=== PATIENT | male | born 1970 | race Caucasian/White ===

== ENCOUNTER 2018-06-09 22:37 | Emergency (ER) | payer BC, OTHER ==
[~2018-06-09] VITALS: Ht 167.6 cm; Wt 77.4 kg
[~2018-06-09 22:37] MED LIST: FOLI1TAB16 PO; MULT1TAB74 PO; SIMV10TA6 PO; VALS40TA2 PO
--- NOTE | 2018-06-09 23:02 | NUR ---
BACK FROM XRAY
[2018-06-10 00:09] LABS: HEMATOCRIT 29.3 % (42.0-52.0); HEMOGLOBIN 9.7 g/dl (14.0-17.9); MEAN CORPUSCULAR HEMOGLOBIN 30.2 PG (27.0-31.0); MEAN CORPUSCULAR HGB CONC 33.2 % (33.0-36.5); MEAN CORPUSCULAR VOLUME 90.9 FL (78-98); MEAN PLATELET VOLUME 8.4 FL (7.4-10.4); PLATELET COUNT 100 X10'3 (140-440); RED BLOOD COUNT 3.22 X10'6 (4.70-6.10); RED CELL DISTRIBUTION WIDTH 18.5 % (11.5-14.5); WHITE BLOOD COUNT 8.1 X10'3 (4.5-11.0)
[2018-06-10 00:15] LABS: ALANINE AMINOTRANSFERASE 48 U/L (12-78); ALBUMIN 3.3 G/DL (3.4-5.0); ALKALINE PHOSPHATASE 179 IU/L (46-116); ANION GAP 13 (8-16); ASPARTATE AMINO TRANSFERASE 120 U/L (10-37); BILIRUBIN,TOTAL 3.9 MG/DL (0.1-1.0); BLOOD UREA NITROGEN 5 MG/DL (7-18); BUN/CREATININE RATIO 7.7 (5.4-32.0); C-REACTIVE PROTEIN 0.49 MG/DL (0.0-0.5); CALCIUM 8.2 MG/DL (8.5-10.1); CHLORIDE 103 MMOL/L (99-107); CREATININE 0.65 MG/DL (0.60-1.10); GLUCOSE 98 MG/DL (70-104); POTASSIUM 3.1 MMOL/L (3.5-5.1); SODIUM 142 MMOL/L (135-145); TOTAL CARBON DIOXIDE 25.8 MMOL/L (24-32); eGFR > 90 ML/MIN
[2018-06-10 00:19] LABS: ALBUMIN/GLOBULIN RATIO 0.7 (1.1-1.5); TOTAL PROTEIN 7.9 G/DL (6.4-8.2)
[2018-06-10 00:21] LABS: INR 1.6 INR; PARTIAL THROMBOPLASTIN TIME 33 SECONDS (22-32); PROTHROMBIN TIME 16.1 SECONDS (9.0-12.0)
[2018-06-10 00:29] LABS: ANISOCYTOSIS 2+; PLATELET ESTIMATE DECREASED; TOTAL CELLS COUNTED 100
[2018-06-10 00:30] LABS: ELLIPTOCYTES 1+; TARGET CELLS 1+
[2018-06-10 00:39] VITALS: BP 117/74
== END 2018-06-10 01:29 | disposition home or self-care (01) ==
LOC: ER 22:38
DX: S20.211A Contusion of right front wall of thorax, initial encounter (principal); S60.222A Contusion of left hand, initial encounter; S60.221A Contusion of right hand, initial encounter; D68.9 Coagulation defect, unspecified; I10 Essential (primary) hypertension; W11.XXXA Fall on and from ladder, initial encounter; Y93.89 Activity, other specified; Y92.89 Other specified places as the place of occurrence of the external cause; Y99.8 Other external cause status
CPT/HCPCS: 36415; 71046; 80053; 85025; 85384; 85610; 85651; 85730; 86140; 93005; 99284

== ENCOUNTER 2018-10-16 18:20 | Emergency (ER) | payer OTHER ==
[~2018-10-16] VITALS: Ht 167.6 cm; Wt 80.0 kg
[2018-10-16 18:36] VITALS: BP 122/77
[2018-10-16] MEDS ORDERED: orphenadrine citrate 60mg/2ml inj. IM ONE (19:40)
[2018-10-16] MEDS ORDERED: ketorolac tromethamine 15mg/ml inj. IM ONE (19:40)
[2018-10-16] MEDS ORDERED: IBUP-1985 PO (19:41)
== END 2018-10-16 19:57 | disposition home or self-care (01) ==
LOC: ER 18:30
DX: S50.11XA Contusion of right forearm, initial encounter (principal); M25.511 Pain in right shoulder; I10 Essential (primary) hypertension; Z98.890 Other specified postprocedural states; Z79.899 Other long term (current) drug therapy; W22.8XXA Striking against or struck by other objects, initial encounter; Y93.89 Activity, other specified; Y92.89 Other specified places as the place of occurrence of the external cause; Y99.8 Other external cause status
CPT/HCPCS: 73090; 96372; 99283; J1885; J2360

== ENCOUNTER 2018-11-28 17:04 | Emergency (ER) | payer OTHER ==
[~2018-11-28] VITALS: Ht 167.6 cm; Wt 84.0 kg
[~2018-11-28 17:04] MED LIST changes: +IBUP-1985 PO
[2018-11-28 17:12] VITALS: BP 121/67
[2018-11-28 18:28] LABS: BASOPHILS % (AUTO) 0.5 % (0-1); EOSINOPHILS # (AUTO) 0.1 X10'3 (0-0.9); EOSINOPHILS % (AUTO) 1.4 % (0-6); HEMATOCRIT 26.3 % (42.0-52.0); HEMOGLOBIN 9.1 g/dl (14.0-17.9); LYMPHOCYTES # (AUTO) 1.8 X10'3 (1.1-4.8); LYMPHOCYTES % (AUTO) 24.3 % (21-51); MEAN CORPUSCULAR HEMOGLOBIN 34.8 PG (27.0-31.0); MEAN CORPUSCULAR HGB CONC 34.5 g/dL (33.0-36.5); MEAN CORPUSCULAR VOLUME 100.8 FL (78-98); MEAN PLATELET VOLUME 8.4 FL (7.4-10.4); MONOCYTES # (AUTO) 1.2 X10'3 (0-0.9); MONOCYTES % (AUTO) 15.5 % (2-12); NEUTROPHILS # (AUTO) 4.4 X10'3 (1.8-7.7); NEUTROPHILS % (AUTO) 58.3 % (42-75); PLATELET COUNT 82 X10'3 (140-440); RED CELL DISTRIBUTION WIDTH 14.9 % (11.5-14.5); WHITE BLOOD COUNT 7.5 X10'3 (4.5-11.0)
[2018-11-28 18:35] LABS: ALANINE AMINOTRANSFERASE 36 U/L (12-78); ALBUMIN 3.1 G/DL (3.4-5.0); ALKALINE PHOSPHATASE 228 IU/L (46-116); ANION GAP 13 (8-16); ASPARTATE AMINO TRANSFERASE 77 U/L (10-37); BILIRUBIN,TOTAL 4.1 MG/DL (0.1-1.0); BLOOD UREA NITROGEN 9 MG/DL (7-18); CALCIUM 8.6 MG/DL (8.5-10.1); CHLORIDE 104 MMOL/L (99-107); CREATININE 0.75 MG/DL (0.60-1.10); GLUCOSE 86 MG/DL (70-104); POTASSIUM 3.4 MMOL/L (3.5-5.1); SODIUM 140 MMOL/L (135-145); TOTAL CARBON DIOXIDE 23.1 MMOL/L (24-32); eGFR > 90 ML/MIN
[2018-11-28 18:37] LABS: ALBUMIN/GLOBULIN RATIO 0.7 (1.1-1.5); TOTAL PROTEIN 7.3 G/DL (6.4-8.2)
--- NOTE | 2018-11-28 19:08 | NUR ---
Patient laying on ian, pending vascular study. He is A&Ox3 CREWS and is appropriate, I will continue to monitor.
--- NOTE | 2018-11-28 20:43 | NUR ---
resting comfortably, pending vascular study results.
== END 2018-11-28 20:47 | disposition home or self-care (01) ==
LOC: ER 17:05
DX: S80.11XA Contusion of right lower leg, initial encounter (principal); I10 Essential (primary) hypertension; F10.99 Alcohol use, unspecified with unspecified alcohol-induced disorder; Z90.89 Acquired absence of other organs; Z79.899 Other long term (current) drug therapy; W22.8XXA Striking against or struck by other objects, initial encounter; Y93.89 Activity, other specified; Y92.89 Other specified places as the place of occurrence of the external cause; Y99.8 Other external cause status; Y90.9 Presence of alcohol in blood, level not specified
CPT/HCPCS: 36415; 73552; 80053; 85025; 93971; 99284